=== PATIENT | female | born 1980 | race Caucasian/White ===

== ENCOUNTER 2016-06-14 05:49 | Inpatient (IN) | payer MEDICAID ==
[~2016-06-14] VITALS: Ht 167.6 cm; Wt 75.9 kg
[2016-06-14 06:28] VITALS: Ht 167.6 cm; Wt 75.9 kg
[2016-06-14 06:30] VITALS: BP 113/73; PULSE 117; RESP 18
[2016-06-14] MEDS ORDERED: METHYLERGONOVINE 0.2 MG INJ IM PRN (06:30)
[2016-06-14] MEDS ORDERED: MISOPROSTOL 200 MCG TAB PR PRN ×2 (06:30→08:30)
[2016-06-14] MEDS ORDERED: OXYTOCIN 30 UNITS/LR 500 ML IV PRN (06:30)
[2016-06-14] MEDS ORDERED: CARBOPROST 250 MCG INJ IM PRN (06:30)
[2016-06-14] MEDS ORDERED: CEFAZOLIN 2 GM/50 ML (PMX) 50 ML IV SCH (06:30)
[2016-06-14 06:49] LABS: INR 1.08; PARTIAL THROMBOPLASTIN TIME 29.5 Sec (25.0-35.0); PT RATIO 1.1
[2016-06-14] MEDS: LACTATED RINGER'S 1,000 ML IV SCH ×6 (06:52→21:04)
[2016-06-14] MEDS ORDERED: EPHEDrine SULFATE 50 MG/5 ML SYG ONE (07:00)
[2016-06-14 07:02] LABS: BASOPHILS % 0.4 % (0.0-2.0); EOSINOPHILS % 0.3 % (0.0-7.0); HEMATOCRIT 33.5 % (37.0-47.0); HEMOGLOBIN 11.6 g/dl (12.0-16.0); LYMPHOCYTES # 1.6 10^3/ul (0.8-2.9); LYMPHOCYTES % 24.1 % (15.0-51.0); MEAN CORPUSCULAR HEMOGLOBIN 32.2 pg (29.0-33.0); MEAN CORPUSCULAR HGB CONC 34.6 g/dl (32.0-37.0); MEAN CORPUSCULAR VOLUME 92.9 fl (82.0-101.0); MONOCYTE # 0.4 10^3/ul (0.3-0.9); MONOCYTES % 6.7 % (0.0-11.0); NEUTROPHIL # 4.6 10^3/ul (1.6-7.5); NEUTROPHILS % 68.5 % (39.0-77.0); PLATELET COUNT 235 10^3/UL (140-440); RED BLOOD COUNT 3.61 10^6/ul (4.20-5.40); RED CELL DISTRIBUTION WIDTH 14.5 % (11.5-14.5); UNCORRECTED WBC 6.8 10^3/ul (4.8-10.8); WHITE BLOOD COUNT 6.8 10^3/ul (4.8-10.8)
[2016-06-14 07:07] LABS: CONDITION 1; LH ANALYZER COMMENTS 1
[2016-06-14] MEDS ORDERED: LACTATED RINGER'S 1,000 ML IV ONE (07:25)
[2016-06-14] MEDS ORDERED: CITRIC ACID/NA CITRATE 30 ML CUP PO ONE (07:30)
[2016-06-14] MEDS ORDERED: FAMOTIDINE 20 MG INJ IV ONE (07:30)
[2016-06-14] MEDS ORDERED: METOCLOPRAMIDE 10 MG INJ IV ONE (07:30)
[2016-06-14] MEDS ORDERED: morphine SULFATE/PF (10 MG/10 ML) INJ ONE (08:04)
[2016-06-14] MEDS ORDERED: FENTAnyl 50 MCG/ML VIAL ONE (08:05)
--- NOTE | 2016-06-14 08:07 | HP ---
Date/Time of Note Date/Time of Note DATE: 06/14/16 TIME: 08:05 OB - History Hx of Present Free Text/Dictation with IUP at 39 weeks with h/o c/s x 3 who desires to have repeat c/s and BTL Care: Good Care Ultrasounds: Normal mid trimester US Obstetrical Complications: None Past Family/Social History * Past Medical, Surgical, Family and Obstetric Histories reviewed from chart. OB Admission Exam Vital Signs Vital Signs Vital Signs Date Time Temp Pulse Resp B/P Pulse Ox O2 Delivery O2 Flow Rate FiO2 06/14/16 06:30 98.8 117 18 113/73 Room Air Physical Exam HEENT: WNL Heart: Rhythm Normal Lungs: Clear, Equal Abdomen: WNL Extremities: Normal Reflexes: Normal Last 72 hours Lab Results CBC & BMP 06/14/16 06:10 OB Assessment/Plan Other Assessment: with IUP at 39 weeks with h/o c/s x 3 who desires to have repeat c/s and BTL Other plan: repeat c/s and BTL SHAE ALBERTO MD Jun 14, 2016 08:07
[2016-06-14] MEDS ORDERED: PHENYLephrine (100 MCG/ML) 5ML SYG ONE ×3 (08:16→08:44)
[2016-06-14] MEDS ORDERED: ONDANSETRON 4 MG INJ ONE (08:28)
[2016-06-14] MEDS ORDERED: OXYCODONE/ACETAMINOPHEN (5/325) TAB PO PRN ×2 (08:30)
[2016-06-14] MEDS ORDERED: LANOLIN 7 GM TUBE TOP PRN (08:30)
[2016-06-14] MEDS ORDERED: NA PHOSPHATE/BIPHOS 133 ML ENEMA PR PRN (08:30)
[2016-06-14] MEDS ORDERED: OXYTOCIN 30 UNITS/LR 500 ML IV ONE (08:39)
--- NOTE | 2016-06-14 08:52 | PREOPHP ---
DATE OF ADMISSION: 06/14/2016 HISTORY OF PRESENT ILLNESS: The patient is a 36-year-old 4, para 3, with previous delivery x3 in the past who desires to have repeat delivery and permanent sterilization. I discussed with the patient the risks, benefits, indications, alternatives of procedure including, b ut not limited to risk of infection, bleeding, damage to other organs, bowel, bladder, hernia format ion, scar formation, possibility of blood transfusions. She was allowed to ask questions, all her q uestions were answered. Informed consent has been obtained. Also, the risks of tubal ligation with possible failure and the fact that it is permanent and irreversible discussed with patient. All he r questions were answered, and informed consent has been obtained. Her history is significant for r equirement to reopen her after her previous section because of the postoperative bleeding a nd a second exploratory laparotomy had to be done. PAST MEDICAL HISTORY: None. PAST SURGICAL HISTORY: delivery x3 and exploratory laparotomy. ALLERGIES: NO KNOWN DRUG ALLERGIES. MEDICATIONS: 1. vitamins. 2. Iron. REVIEW OF SYSTEMS: Significant as above. PHYSICAL EXAMINATION: VITAL SIGNS: Stable. She is afebrile. GENERAL: In no acute distress. HEENT: No thyromegaly. HEART: Regular rate and rhythm. LUNGS: Clear to auscultation bilaterally. ABDOMEN: Soft, gravid, not tender. EXTREMITIES: No edema. ASSESSMENT: 1. Term . 2. History of previous delivery x3, desires permanent sterilization. PLAN: Repeat delivery and tubal ligation. Informed consent has been obtained. Dictated By: SHAE BERMEO/GILBERT Conf#: [id number] DID#: [id number]
[2016-06-14] MEDS ORDERED: NALOXONE (0.4 MG/ML) INJ IV PRN (09:00)
[2016-06-14] MEDS ORDERED: DIPHENHYDRAMINE 50 MG INJ IV PRN ×2 (09:00)
[2016-06-14] MEDS ORDERED: FENTAnyl 50 MCG/ML VIAL IV PRN (09:00)
[2016-06-14] MEDS ORDERED: HYDROmorphONE 1 MG/ML SYG IV PRN ×2 (09:00)
[2016-06-14] MEDS ORDERED: HYDROmorphONE (0.2 MG/ML) 10ML SYG IV PRN (09:00)
[2016-06-14] MEDS ORDERED: MEPERIDINE 25 MG INJ IV PRN (09:00)
[2016-06-14] MEDS ORDERED: ONDANSETRON 4 MG INJ IV PRN ×2 (09:00)
[2016-06-14] MEDS ORDERED: ZOLPIDEM 5 MG TAB PO PRN (09:00)
[2016-06-14] MEDS ORDERED: KETOROLAC 30 MG INJ IV PRN ×2 (09:00)
[2016-06-14] MEDS ORDERED: PROCHLORPERAZINE 10 MG INJ IV PRN ×2 (09:00)
[2016-06-14] MEDS: OXYTOCIN 30 UNITS/LR 500 ML IV SCH ×2 (09:24→09:40)
[2016-06-14] MEDS: IBUPROFEN 600 MG TAB PO SCH ×3 (12:00→18:00)
[2016-06-14 12:15] VITALS: BP 120/71; PULSE 90; RESP 17
--- NOTE | 2016-06-14 12:25 | DELSUM ---
Delivery Summary A-C Datetime Report Generated by CPN: 06/14/2016 12:24 DELIVERY PERSONNEL Toy Electric Train Repairer: Rei, Roxana MATERNAL INFORMATION Delivery Anesthesia: Spinal Medications in Delivery: see anesthesia record Estimated Blood Loss (ml): 700 Placenta Cultured: No Maternal Complications: Other RN Comments: Hx of bleeding with last pregancy and delivery- sent back to OR LABOR SUMMARY EDC: 06/20/2016 00:00 No. Babies in Womb: 1 Attempted: No Labor Anesthesia: None LABOR INFORMATION Reason for Induction: Not Applicable Oxytocin: N/A Group B Beta Strep: Done, Result Unknown Antibiotics # of Doses: ancef 2 graMS Antibiotics Time of Last Dose: 806 Steroids Given: None Reason Steroids Not Administered: Not Applicable MEMBRANES Membranes Rupture Method: Artificial Rupture of Membranes: 06/14/2016 08:28 Length of Rupture (hr): 0.00 Amniotic Fluid Color: Clear Amniotic Fluid Amount: Moderate Amniotic Fluid Odor: Normal STAGES OF LABOR Stage 3 hr: 0 Stage 3 min: 1 CSECTION DELIVERY Primary Indication: Repeat Elective Secondary Indication: Repeat Elective CSection Urgency: N/A CSection Incidence: Repeat Labor: N/A Elective: N/A CSection Incision: Lower Uterine Transverse Sterilization Procedure: [place] BABY A INFORMATION Delivery Date/Time: 06/14/2016 08:28 Method of Delivery: Born in Route : No : N/A Forceps: N/A Vacuum Extraction: N/A Shoulder Dystocia : N/A SHOULDER DYSTOCIA BABY A Delivery Date/Time: 06/14/2016 08:28 PRESENTATION/POSITION BABY A Presentation: Cephalic Cephalic Presentation: Vertex Vertex Position: Left Occipital Anterior Breech Presentation: N/A PLACENTA INFORMATION BABY A Placenta Delivery Time : 06/14/2016 08:29 Placenta Method of Delivery: Manual Removal Placenta Status: Delivered SCORES BABY A Heart Rate 1 min: >100 bpm Resp Effort 1 min: Good Cry Reflex Irritability 1 min: Cough/Sneeze/Pulls Away Muscle Tone 1 min: Active Motion Color 1 min: Blue/Pale SCORE 1 MIN: 8 Heart Rate 5 min: >100 bpm Resp Effort 5 min: Good Cry Reflex Irritability 5 min: Cough/Sneeze/Pulls Away Muscle Tone 5 min: Active Motion Color 5 min: Body [place], Extremit Blue Resuscitation Effort 5 min: Tactile Stimulation SCORE 5 MIN: 9 INFANT INFORMATION BABY A Gestational Age at Delivery: 39.1 Gestational Status: Full Term- 39- 40.6 Weeks Infant Outcome : Liveborn Infant Condition : Stable Infant Sex: Male IDENTIFICATION/MEDS BABY A ID Band Number: [id number] ID Band Location: Right Leg; Left Arm Sensor Applied: Yes Sensor Number: [id number] Sensor Location : Cord Clamp Vitamin K Given : Aquamephyton 1 mg IM; Left Thigh Erythromycin Given: Given Both Eyes WEIGHT/LENGTH BABY A Birthweight (gm): 3465 Infant Weight (lb): 7 Infant Weight (oz): 10 Length (in): 20.00 Infant Length (cm): 50.80 CORD INFORMATION BABY A No. Cord Vessels: 3 Nuchal Cord : Around Neck x1, Loose Cord Blood Taken: Yes ASSESSMENT BABY A Infant Complications: None Physical Findings at Delivery: Within Normal Limits Infant Respirations: Appears Normal Business Control Manager/ALS Called : No Infant Care By: DAVID SHAFER Transferred To: Remains with Mother
[2016-06-14] MEDS: SENNA/DOCUSATE NA (8.6MG/50MG) TAB PO SCH ×2 (12:33→21:00)
[2016-06-14 12:45] VITALS: BP 113/68; PULSE 86; RESP 18
[2016-06-14 16:45] VITALS: BP 103/65; RESP 18
--- NOTE | 2016-06-14 19:27 | OPR ---
DATE OF OPERATION: PREOPERATIVE DIAGNOSES: 1. Term . 2. History of previous delivery x3, desires repeat delivery. 3. Desires permanent sterilization. POSTOPERATIVE DIAGNOSES: 1. Term . 2. History of previous delivery x3, desires repeat delivery. 3. Desires permanent sterilization. 4. Pelvic adhesions. PROCEDURE: Repeat delivery, lysis of adhesions and bilateral salpingectomies. SURGEON: Shannen Blair MD SEAFOOD SPECIALIST: Allen Byrne MD ESTIMATED BLOOD LOSS: 700 COMPLICATIONS: None. CONSENT: Risks, benefits, indications, alternatives of procedure including but not limited to risk of infection; bleeding; damage to other organs, bowel, bladder; hernia formation; scar formation; po ssible need for blood transfusions; possibility of failure of the tubal ligation with future intraut erine or ectopic were all discussed with patient. She was allowed to ask questi ons. All her questions were answered. Informed consent was obtained. DESCRIPTION: She was taken to operating room, and spinal anesthesia was induced. She was prepped a nd draped in the usual sterile fashion. Surgical time-out was done. Anesthesia was tested to be ad equate. With the permission of anesthesiologist, a Pfannenstiel skin incision was developed. Incis ion was taken down in layers. The fascia was cut separate and undermined from the underlying muscle using sharp and blunt dissection. All bleeders were cauterized. Peritoneum was entered bluntly. Adhesions of bilateral tubes and ovaries were noted. A low transverse incision was developed, and a viable was delivered in vertex presentation. Amniotic fluid clear and adequate. The cord w as clamped and cut and handed to awaiting team. Placenta was then delivered. Uterus was exterioriz ed and wrapped in moist ____. Uterus was cleaned with a dry lap. All residual membranes were remov ed. Uterine incision was then closed using #1 Monocryl in 2 layers. A 5 cm distal end of the right tube was ligated 3 times. The ligated portion was cut and sent to pathology. Same procedure was d one on contralateral side. Prior to performing bilateral salpingectomy, the adhesions from omentum to the tubes and ovaries were using sharp and blunt dissection. The peritoneal cavity was explored. There were no surgical instruments or laps left behind. Peritoneum was closed using 2-0 Monocryl. The fascia was closed using #1 Vicryl. Subcutaneous tissue was cleaned, irrigated, all bleeders cauterized and the skin closed using 4-0 Monocryl. All counts correct. Dictated By: SHANNEN BERMEO/GILBERT Conf#: [id number] DID#: [id number]
[2016-06-14 19:50] VITALS: BP 108/62; PULSE 78; RESP 19
[2016-06-15] MEDS: LACTATED RINGER'S 1,000 ML IV SCH ×2 (02:52→08:03)
[2016-06-15 04:00] VITALS: BP 111/60; PULSE 80; RESP 19
[2016-06-15] MEDS: IBUPROFEN 600 MG TAB PO SCH ×4 (06:00→17:53)
[2016-06-15 07:50] VITALS: BP 107/63; PULSE 91; RESP 17
[2016-06-15 08:14] LABS: BASOPHILS % 0.3 % (0.0-2.0); EOSINOPHILS % 0.4 % (0.0-7.0); HEMATOCRIT 25.2 % (37.0-47.0); HEMOGLOBIN 8.6 g/dl (12.0-16.0); LYMPHOCYTES # 1.5 10^3/ul (0.8-2.9); LYMPHOCYTES % 17.2 % (15.0-51.0); MEAN CORPUSCULAR HEMOGLOBIN 32.4 pg (29.0-33.0); MEAN CORPUSCULAR HGB CONC 34.1 g/dl (32.0-37.0); MEAN CORPUSCULAR VOLUME 94.9 fl (82.0-101.0); MEAN PLATELET VOLUME 7.9 fl (7.4-10.4); MONOCYTE # 0.6 10^3/ul (0.3-0.9); MONOCYTES % 6.6 % (0.0-11.0); NEUTROPHIL # 6.4 10^3/ul (1.6-7.5); NEUTROPHILS % 75.5 % (39.0-77.0); PLATELET COUNT 186 10^3/UL (140-440); RED BLOOD COUNT 2.66 10^6/ul (4.20-5.40); RED CELL DISTRIBUTION WIDTH 14.9 % (11.5-14.5); UNCORRECTED WBC 8.5 10^3/ul (4.8-10.8); WHITE BLOOD COUNT 8.5 10^3/ul (4.8-10.8)
[2016-06-15 08:16] LABS: CONDITION 1; LH ANALYZER COMMENTS 1
[2016-06-15] MEDS: SENNA/DOCUSATE NA (8.6MG/50MG) TAB PO SCH ×2 (09:12→20:36)
[2016-06-15 16:00] VITALS: BP 108/58; PULSE 89; RESP 17
[2016-06-15 19:40] VITALS: BP 114/66; PULSE 90; RESP 19
--- NOTE | 2016-06-15 21:17 | PN ---
Date/Time of Note Date/Time of Note DATE: 06/15/16 TIME: 21:11 OB Subjective Subjective Subjective Patient has no complaint. Patient is tolerating regular diet and ambulating without difficulty. OB Objective Objective Objective Afebrile VSS Hgb 8.6 Abdomen: WNL Extremities: Normal OB Assessment/Plan Reason for admission: other Other Assessment: POD #1 Stable. Plan: Other Other plan: Continue with present care. Fe supplement. GAGAN MCKEON MD Jun 15, 2016 21:17
[2016-06-16] MEDS: IBUPROFEN 600 MG TAB PO SCH ×5 (00:10→23:23)
[2016-06-16 04:00] VITALS: BP 113/64; PULSE 88; RESP 19
[2016-06-16 07:40] VITALS: BP 110/65; PULSE 94; RESP 18
[2016-06-16] MEDS: FERROUS SULFATE (EC) 325 MG TAB PO SCH ×3 (09:19→21:12)
[2016-06-16] MEDS: SENNA/DOCUSATE NA (8.6MG/50MG) TAB PO SCH ×2 (09:19→21:12)
--- NOTE | 2016-06-16 13:58 | PN ---
Date/Time of Note Date/Time of Note DATE: 06/16/16 TIME: 13:56 OB Subjective Subjective Subjective Patient is doing well. OB Objective Objective Objective Afebrile VSS Abdomen: WNL Extremities: Normal OB Assessment/Plan Other Assessment: POD #2 Stable Other plan: Continue present care. GAGAN MCKEON MD Jun 16, 2016 13:58
[2016-06-16 16:00] VITALS: BP 117/68; PULSE 95; RESP 18
--- NOTE | 2016-06-16 18:57 | DS ---
DATE OF ADMISSION: 06/14/2016 DATE OF DISCHARGE: 06/17/2016 ADMITTING DIAGNOSIS: at term with previous section. HISTORY: A 36-year-old female 4, para 3 at admission, para 4 at time of discharge, with ter m was admitted for repeat section and bilateral tubal ligation. On 06/14/2016, a fter obtaining informed consent, the patient underwent a repeat section with lysis of adhes ions and bilateral tubal ligation. The patient's operation was uncomplicated. Postoperatively, pat ient was given clear liquid diet, which was advanced to regular diet, which she tolerated well. The patient is discharged on postop day #3 after having had adequate bladder and bowel function. CONDITION ON DISCHARGE: Stable. DISCHARGE INSTRUCTIONS: DIET: Regular. ACTIVITIES: Pelvic rest and no strenuous activities. MEDICATIONS: 1. Motrin. 2. [place] as needed for pain. 3. Continue with vitamins. 4. Ferrous sulfate. FOLLOWUP: With Dr. Blair in 2 weeks. FINAL DIAGNOSES: 1. Term delivered by section. 2. Previous section. 3. Pelvic adhesions. 4. Voluntary sterilization. 5. Mother with single liveborn. Dictated By: GAGAN MCKEON MD GD/NTS Conf#: [id number] DID#: [id number] CC: SHAE BLAIR MD;*EndCC*
[2016-06-16 19:40] VITALS: BP 119/87; PULSE 99; RESP 18
--- NOTE | 2016-06-16 20:20 | PN ---
Date/Time of Note Date/Time of Note DATE: 06/16/16 TIME: 20:16 OB Subjective Subjective Subjective Pain well controlled with PO pain meds. Breast feeding. Passed flatus. Had bowel movement. Ambulating. Tolerated regular diet. OB Objective Objective Objective GA: A&O, NAD Abdomen: Soft, appropriate tenderness over the section incision. no drainage Extremities: no calf tenderness, no click, no edema. Breast exam: no erythema, no engorgement, no evidence of mastitis or fissure Hematology - 72 Hrs Test 06/14/16 06:10 06/15/16 06:59 Basophils # 0.010^3/ul (0.0-0.1) 0.010^3/ul (0.0-0.1) Basophils % 0.4% (0.0-2.0) 0.3% (0.0-2.0) Blood Morphology Comment Eosinophils # 0.010^3/ul (0.0-0.5) 0.010^3/ul (0.0-0.5) Eosinophils % 0.3% (0.0-7.0) 0.4% (0.0-7.0) Hematocrit 33.5% (37.0-47.0) L 25.2% (37.0-47.0) #L Hemoglobin 11.6g/dl (12.0-16.0) L 8.6g/dl (12.0-16.0) #L Lymphocytes # 1.610^3/ul (0.8-2.9) 1.510^3/ul (0.8-2.9) Lymphocytes % 24.1% (15.0-51.0) 17.2% (15.0-51.0) Mean Corpuscular Hemoglobin 32.2pg (29.0-33.0) 32.4pg (29.0-33.0) Mean Corpuscular Hemoglobin Concent 34.6g/dl (32.0-37.0) 34.1g/dl (32.0-37.0) Mean Corpuscular Volume 92.9fl (82.0-101.0) 94.9fl (82.0-101.0) Mean Platelet Volume 8.0fl (7.4-10.4) 7.9fl (7.4-10.4) Monocytes # 0.410^3/ul (0.3-0.9) 0.610^3/ul (0.3-0.9) Monocytes % 6.7% (0.0-11.0) 6.6% (0.0-11.0) Neutrophils # 4.610^3/ul (1.6-7.5) 6.410^3/ul (1.6-7.5) Neutrophils % 68.5% (39.0-77.0) 75.5% (39.0-77.0) Nucleated Red Blood Cells # 0.010^3/ul (0.0-0.0) 0.010^3/ul (0.0-0.0) Nucleated Red Blood Cells % 0.0/100WBC (0.0-0.0) 0.0/100WBC (0.0-0.0) Platelet Count 98422^3/UL (140-440) 74470^3/UL (140-440) # Red Blood Count 3.6110^6/ul (4.20-5.40) L 2.6610^6/ul (4.20-5.40) #L Red Cell Distribution Width 14.5% (11.5-14.5) 14.9% (11.5-14.5) H White Blood Count 6.810^3/ul (4.8-10.8) 8.510^3/ul (4.8-10.8) # OB Assessment/Plan Other Assessment: POD #2 S/p section and BTL Doing well Anticipate [place] home tomorrow BRUNO SINGH MD Jun 16, 2016 20:20
[2016-06-17 03:51] VITALS: BP 109/64; PULSE 84; RESP 18
[2016-06-17] MEDS: IBUPROFEN 600 MG TAB PO SCH (05:39)
[2016-06-17 07:55] VITALS: BP 117/68; PULSE 91; RESP 19
[2016-06-17] MEDS ORDERED: MEASLES,MUMPS,RUBELLA VACCINE INJ SC* ONE (09:00)
[2016-06-17] MEDS ORDERED: DIPHTH/TET/ACEL PERTUSS (ADULT) 0.5 ML VIAL IM* ONE (09:00)
[2016-06-17] MEDS: SENNA/DOCUSATE NA (8.6MG/50MG) TAB PO SCH (09:19)
[2016-06-17] MEDS: FERROUS SULFATE (EC) 325 MG TAB PO SCH (09:20)
== END 2016-06-17 16:56 | disposition home or self-care (01) | DRG 766 ==
LOC: L-D 05:49 → PP1 12:12
PROVIDERS: ADMIT Specialist; ATTEND Specialist
PROC: 0UT70ZZ Resection of Bilateral Fallopian Tubes, Open Approach (ICD-10-PCS; 2016-06-14)
PROC: 10D00Z1 Extraction of Products of Conception, Low, Open Approach (ICD-10-PCS; principal; 2016-06-14 07:30)
DX: O34.211 Maternal care for low transverse scar from previous cesarean delivery (principal); K66.0 Peritoneal adhesions (postprocedural) (postinfection); O99.613 Diseases of the digestive system complicating pregnancy, third trimester; Z3A.39 39 weeks gestation of pregnancy; Z30.2 Encounter for sterilization; Z37.0 Single live birth
CPT/HCPCS: 85025; 85610; 85730; 86592; 86850; 86900; 86901; 86920; 87340; 88302; 90715; 94760; 99464; J0690; J1170; J2210; J2274; J2370; J2405; J2590; J2765; J3010; J7120